=== PATIENT | female | born 2005 | race Caucasian/White ===

== ENCOUNTER 2025-05-24 12:51 | Emergency (ER) | payer OTHER ==
[~2025-05-24] VITALS: Ht 175.3 cm; Wt 75.0 kg
[2025-05-24 12:54] VITALS: O2SAT 98
[2025-05-24] MEDS: LIDOCAINE HCL/EPINEPHRINE 1%-EPI 1:100,000 20ML VIAL INFIL ONE (14:48)
[2025-05-24 15:50] VITALS: BP 112/64; PULSE 72; RESP 18; TEMP 36.8; O2SAT 98
== END 2025-05-24 15:51 | disposition home or self-care (01) ==
LOC: ER 12:51
DX: S01.81XA Laceration without foreign body of other part of head, initial encounter (principal); W22.8XXA Striking against or struck by other objects, initial encounter; Y93.13 Activity, water polo; Y92.89 Other specified places as the place of occurrence of the external cause; Y99.8 Other external cause status
CPT/HCPCS: 12011; 99282; J2004; Z7610; 12001